=== PATIENT | female | born 1965 | race Caucasian/White ===

== ENCOUNTER 2016-08-26 18:27 | Emergency (ER) | payer MEDICAID, BC ==
[~2016-08-26 18:27] MED LIST: ATIVAN0.5 M1 PO; FLEXERIL10 MG PO; FLUOXETINE10 M2 PO; LAC PO; MAC100 PO; MOTRIN800 MG PO; NORCO1 TAB PO; PROZ20 PO
[2016-08-26 20:26] VITALS: BP 109/67
== END 2016-08-26 20:26 | disposition home or self-care (01) ==
LOC: ED 18:27
DX: S93.401A Sprain of unspecified ligament of right ankle, initial encounter (principal); X58.XXXA Exposure to other specified factors, initial encounter; Y93.89 Activity, other specified; Y92.89 Other specified places as the place of occurrence of the external cause; Y99.8 Other external cause status
CPT/HCPCS: J1885

== ENCOUNTER 2018-12-05 16:49 | Emergency (ER) | payer BC ==
[~2018-12-05] VITALS: Ht 154.9 cm; Wt 62.1 kg
[2018-12-05 17:02] VITALS: Ht 154.9 cm; Wt 62.1 kg
[2018-12-05 18:34] VITALS: BP 118/76
== END 2018-12-05 18:34 | disposition home or self-care (01) ==
LOC: ED 16:49
DX: R51 Headache (principal); H10.89 Other conjunctivitis; F41.9 Anxiety disorder, unspecified